=== PATIENT | male | born 1990 | race Caucasian/White ===

== ENCOUNTER 2017-09-09 17:43 | Emergency (ER) | payer MEDICAID | END 2017-09-09 19:40 | disposition home or self-care (01) | LOC: FTE 17:43 | DX: S61.217A Laceration without foreign body of left little finger without damage to nail, initial encounter (principal); H60.91 Unspecified otitis externa, right ear; X58.XXXA Exposure to other specified factors, initial encounter; Y92.9 Unspecified place or not applicable | CPT/HCPCS: 12001; 99283-25 ==

== ENCOUNTER 2018-07-31 15:55 | Emergency (ER) | payer OTHER, MEDICAID | END 2018-07-31 18:50 | disposition home or self-care (01) | LOC: FTE 15:55 | DX: M54.5 Low back pain (principal) | CPT/HCPCS: 99283; Z7502 ==

== ENCOUNTER 2018-09-14 19:48 | Emergency (ER) | payer OTHER ==
[2018-09-14] MEDS: KETOROLAC 30 MG INJ IM (20:26)
== END 2018-09-14 20:31 | disposition home or self-care (01) ==
LOC: FTE 19:48
DX: S93.402A Sprain of unspecified ligament of left ankle, initial encounter (principal); I10 Essential (primary) hypertension; X50.1XXA Overexertion from prolonged static or awkward postures, initial encounter; Y92.9 Unspecified place or not applicable
CPT/HCPCS: 73610; 96372; 99284-25